=== PATIENT | female | born 1970 | race Caucasian/White ===

== ENCOUNTER 2022-02-15 06:34 | Day surgery (SDC) | payer OTHER ==
[2022-02-15 12:21] VITALS: BMI 37.2
[2022-02-15] MEDS ORDERED: ONDANSETRON 4 MG/2 ML VIAL IVPUSH PRN (13:42)
[2022-02-15] MEDS ORDERED: LACTATED RINGERS SOLUTION 1,000 ML IV SCH (13:45)
[2022-02-15] MEDS ORDERED: PROPOFOL 20 ML ONE ×2 (14:00→14:41)
[2022-02-15] MEDS ORDERED: MIDAZOLAM HCL 2 MG/2 ML SINGLE DOSE VIAL ONE (14:00)
[2022-02-15] MEDS ORDERED: LIDOCAINE HCL 1%, 10 MG/ML (20ML VIAL) ONE (14:02)
[2022-02-15] MEDS ORDERED: BUPIVACAINE HCL/PF 0.5% (5MG/ML) 10 ML VIAL ONE (14:02)
[2022-02-15] MEDS ORDERED: ceFAZolin SODIUM 1 GM VIAL ONE ×2 (14:45)
[2022-02-15] MEDS ORDERED: ceFAZolin SODIUM 1 GM VIAL IVPB ONE (14:45)
[2022-02-15] MEDS ORDERED: ONDANSETRON 4 MG/2 ML VIAL ONE (14:57)
[2022-02-15] MEDS ORDERED: DEXAMETHASONE SOD PHOSPHATE 4 MG/1 ML VIAL ONE (14:57)
[2022-02-15 16:20] VITALS: RESP 18
[2022-02-15 18:41] VITALS: BP 136/75; PULSE 82; TEMP 97.4
== END 2022-02-15 18:41 | disposition home or self-care (01) ==
LOC: JASU-SURG 06:34
PROVIDERS: ATTEND Obstetrics & Gynecology
PROC: 0UDB8ZX Extraction of Endometrium, Via Natural or Artificial Opening Endoscopic, Diagnostic (ICD-10-PCS; principal; 2022-02-15 14:00)
DX: N95.0 Postmenopausal bleeding (principal); N88.2 Stricture and stenosis of cervix uteri
CPT/HCPCS: 81025; 88305-TC; 94760

== ENCOUNTER 2023-10-13 13:41 | Emergency (ER) | payer OTHER ==
[2023-10-13 13:54] VITALS: BP 147/75; PULSE 72; RESP 18; TEMP 98; BMI 36.5
[2023-10-13] MEDS ORDERED: ACETAMINOPHEN 325 MG TABLET (FP) ONE (14:25)
[2023-10-13] MEDS: ACETAMINOPHEN 325 MG TABLET (FP) PO ONE (14:29)
== END 2023-10-13 16:15 | disposition home or self-care (01) ==
LOC: JER 13:41
DX: R07.0 Pain in throat (principal)
CPT/HCPCS: 70490-TC; 99284-25